=== PATIENT | female | born 1945 | race Caucasian/White ===

== ENCOUNTER 2022-06-23 19:25 | Inpatient (IN) | payer MEDICARE ==
[~2022-06-23] VITALS: Ht 167.6 cm; Wt 55.3 kg
[2022-06-23] MEDS ORDERED: IV NORMAL SALINE 500 ML IV ONE ×2 (20:00→22:15)
[2022-06-23 20:55] LABS: HEMATOCRIT 31.7 % (31.2-41.9); MEAN CORPUSCULAR VOLUME 99.8 fL (75.5-95.3); PLATELET COUNT (AUTO) 213 K/uL (179-408)
[2022-06-23 21:12] LABS: CARBON DIOXIDE 32 mmol/L (21-32); CHLORIDE 99 mmol/L (98-107); CREATININE 1.7 mg/dL (0.6-1.3); GLUCOSE 159 mg/dL (74-106); POTASSIUM 4.2 mmol/L (3.5-5.1); UREA NITROGEN, BLOOD 18 mg/dL (7-18)
[2022-06-23 21:20] LABS: ALANINE AMINOTRANSFERASE 11 U/L (14-59); ALKALINE PHOSPHATASE 107 U/L (50-136); ASPARTATE AMINOTRANSFERASE 11 U/L (15-37); BILIRUBIN,DIRECT 0.1 mg/dL (0.0-0.2); BILIRUBIN,TOTAL 0.6 mg/dL (0.2-1.0); TOTAL PROTEIN, SERUM 6.4 g/dL (6.4-8.2)
[2022-06-23] MEDS ORDERED: IV NORMAL SALINE 250 ML IV ONE (21:31)
[2022-06-23] MEDS ORDERED: IOHEXOL 300MG/ML 100 ML INFUS..BTL ONE (21:31)
[2022-06-23 21:39] LABS: LIPASE 34 U/L (73-393)
--- NOTE | 2022-06-23 21:46 | NUR ---
PATIENT TO CT VIA GURNEY, FAMILY REMAINS AT BEDSIDE, HAS BEEN UPDATED ON PLAN OF CARE.
--- NOTE | 2022-06-23 21:49 | NUR ---
2030 PATIENT WAS ASSISTED INTO ROOM # 4, INFORMED OF PLAN OF CARE, NO S/S OF ANY DISTRESS NOTED DENIES ANY PAIN AT THIS TIME. SIDE RAILS UP, #20G ESTABLISHED IN RIGHT FOREARM, BLOOD COLLECTED AND SENT TO LAB. WILL CONTINUE TO MONITOR.
[2022-06-23] MEDS ORDERED: CEFTRIAXONE 1 G in IV DEXTROSE 5% 50 ML IV ONE (22:15)
[2022-06-23] MEDS ORDERED: ONDANSETRON 4 MG/2 ML VIAL IV ONE (22:15)
[2022-06-23] MEDS ORDERED: AZITHROMYCIN IV 500 MG in IV DEXTROSE 5% 250 ML IV ONE (22:15)
[2022-06-23] MEDS ORDERED: AZITHROMYCIN 500MG/ D5W 250ML IVPB **ER PYXIS ONLY IV ONE (22:44)
[2022-06-23] MEDS ORDERED: CEFTRIAXONE /D5W 50ML IVPB **ER PYXIS IV ONE (22:44)
[2022-06-23] MEDS ORDERED: ONDANSETRON 4 MG/2 ML VIAL ONE (22:44)
[2022-06-23] MEDS ORDERED: ONDANSETRON 4 MG/2 ML VIAL IV PRN (23:15)
[2022-06-23] MEDS ORDERED: MORPHINE SULFATE 2 MG/1 ML DISP.SYRIN IV PRN (23:15)
[2022-06-23] MEDS ORDERED: REMEDY ESSENTIAL ZINC PASTE 113 GM TP PRN (23:15)
[2022-06-23] MEDS ORDERED: ACETAMINOPHEN 325 MG TABLET PO PRN (23:15)
--- NOTE | 2022-06-23 23:34 | NUR ---
ASSISTED TO BATHROOM AND BACK TO BED. FAMILY REMAINS AT BEDSIDE.[id number]%
[2022-06-24] MEDS ORDERED: FAMOTIDINE. 20 MG/2 ML VIAL IV ONE ×2 (00:15→00:26)
--- NOTE | 2022-06-24 00:23 | NUR ---
REPORT GIVEN TO ACCEPTING NURSE, PATIENT REMAINS STABLE FOR TRANSPORT TO UNIT.
[2022-06-24 01:30] VITALS: BP 134/53
--- NOTE | 2022-06-24 01:50 | NUR ---
Received report from BRYANNA Oh at 0022. Patient came to TELE unit at this time on a gurney from ER. AAOx4 and ambulatory. Stated no pain and SOB at this time. Is SR on tele monitor, HR 78. Right FA IV access is intact and patent. Safety measures are enforced. Will follow up on plan of care for new admit.
[2022-06-24 04:00] VITALS: BP 142/54
[2022-06-24] MEDS: PANTOPRAZOLE SODIUM 40 MG TABLET.DR PO SCH (06:26)
[2022-06-24 06:43] LABS: HEMATOCRIT 25.8 % (31.2-41.9); MEAN CORPUSCULAR HEMOGLOBIN 34.6 uug (24.7-32.8); MEAN CORPUSCULAR VOLUME 100.2 fL (75.5-95.3); PLATELET COUNT (AUTO) 161 K/uL (179-408)
[2022-06-24 07:01] LABS: THYROID STIMULATING HORMONE 2.044 mIU/mL (0.358-3.740)
[2022-06-24] MEDS: IV NS 1000 ML 1,000 ML IV PRN (07:18)
[2022-06-24 07:36] LABS: CARBON DIOXIDE 29 mmol/L (21-32); CHLORIDE 102 mmol/L (98-107); CREATININE 1.5 mg/dL (0.6-1.3); GLUCOSE 107 mg/dL (74-106); MAGNESIUM 1.4 mg/dL (1.8-2.4); PHOSPHOROUS 3.8 mg/dL (2.5-4.9); UREA NITROGEN, BLOOD 18 mg/dL (7-18)
[2022-06-24] MEDS: MAGNESIUM SULFATE/D5W 100 ML IV SCH ×2 (11:12→15:58)
[2022-06-24 11:42] VITALS: BP 129/72
[2022-06-24] MEDS ORDERED: LORAZEPAM 2 MG/1 ML VIAL IV PRN (12:15)
[2022-06-24] MEDS: CYANOCOBALAMIN 1000 MCG/ML VIAL IM SCH (14:34)
[2022-06-24 15:21] LABS: IRON, SERUM 87 ug/dL (50-175)
[2022-06-24 15:35] LABS: FERRITIN 226 ng/mL (8-252); LACTATE DEHYDROGENASE 148 U/L (81-234)
[2022-06-24 15:45] VITALS: BP 135/69
[2022-06-24] MEDS ORDERED: AMLO5TAB4 PO (16:48)
[2022-06-24] MEDS ORDERED: EPIN11.7 IH (16:53)
[2022-06-24 20:00] VITALS: BP 148/64
[2022-06-24] MEDS ORDERED: AZITHROMYCIN IV 500 MG in IV DEXTROSE 5% 250 ML IV SCH (22:00)
[2022-06-24] MEDS: CEFTRIAXONE 1 G in IV DEXTROSE 5% 50 ML IV SCH (23:42)
[2022-06-25] MEDS: IV NS 1000 ML 1,000 ML IV PRN (03:41)
[2022-06-25 04:00] VITALS: BP 108/60
[2022-06-25] MEDS: PANTOPRAZOLE SODIUM 40 MG TABLET.DR PO SCH (06:10)
[2022-06-25 06:40] LABS: HEMATOCRIT 23.7 % (31.2-41.9); MEAN CORPUSCULAR HEMOGLOBIN 34.4 uug (24.7-32.8); MEAN CORPUSCULAR VOLUME 100.5 fL (75.5-95.3); PLATELET COUNT (AUTO) 145 K/uL (179-408)
[2022-06-25 07:00] LABS: BILIRUBIN,TOTAL 0.6 mg/dL (0.2-1.0); CREATININE 1.1 mg/dL (0.6-1.3); MAGNESIUM 1.7 mg/dL (1.8-2.4); PHOSPHOROUS 3.5 mg/dL (2.5-4.9); TOTAL PROTEIN, SERUM 5.7 g/dL (6.4-8.2)
[2022-06-25 07:07] LABS: *IMMUNOGLOBULIN G, SERUM 782 mg/dL (586-1602); IMMUNOGLOBULIN M, SERUM 58 mg/dL (26-217)
[2022-06-25] MEDS: CYANOCOBALAMIN 1000 MCG/ML VIAL IM SCH (08:35)
[2022-06-25] MEDS ORDERED: MAGNESIUM OXIDE 400 MG TABLET PO ONE (09:00)
[2022-06-25 09:06] LABS: ALPHA-1-GLOBULIN 0.3 g/dL (0.0-0.4); ALPHA-2-GLOBULIN 0.7 g/dL (0.4-1.0); BETA GLOBULIN 0.9 g/dL (0.7-1.3); GAMMA GLOBULIN 0.9 g/dL (0.4-1.8); GLOBULIN, TOTAL 2.9 g/dL (2.2-3.9); M-SPIKE Not Observed g/dL (Not Observed)
[2022-06-25 11:06] LABS: CANCER AG, 125 15.2 U/mL (0.0-38.1); CANCER ANTIGEN 15-3 25.4 U/mL (0.0-25.0)
[2022-06-25 12:44] VITALS: BP 158/52
--- NOTE | 2022-06-25 14:25 | NUR ---
Patient is currently in her bed, watching TV, no signs of pain or distress noted. Patient is calm, no restraining methods are being used today. Will continue to monitor.
[2022-06-25 16:06] VITALS: BP 161/48
[2022-06-25] MEDS: AZITHROMYCIN 250 MG TABLET PO SCH (20:33)
[2022-06-25 20:39] VITALS: BP 161/76
[2022-06-25] MEDS: CEFTRIAXONE 1 G in IV DEXTROSE 5% 50 ML IV SCH (22:35)
--- NOTE | 2022-06-26 01:30 | NUR ---
PATIENT AWAKE IN BED. MID-LINE NOTED TO LEFT UPPER ARM, ACCIDENTLY DISLODGED FROM PATIENT. NOTIFIED [employer] THAT PATIENTS MID-LINE WAS ACCIDENTLY PULLED OUT AND WILL NEED ONE INSERTED IN AM.
[2022-06-26 05:39] VITALS: BP 155/68
[2022-06-26] MEDS: PANTOPRAZOLE SODIUM 40 MG TABLET.DR PO SCH (06:04)
--- NOTE | 2022-06-26 06:37 | NUR ---
TEXT DR. WILKINS FOR MRI APPROVAL.
[2022-06-26 07:38] LABS: HEMATOCRIT 24.4 % (31.2-41.9); MEAN CORPUSCULAR VOLUME 99.8 fL (75.5-95.3); PLATELET COUNT (AUTO) 177 K/uL (179-408)
[2022-06-26 08:01] LABS: BILIRUBIN,TOTAL 0.5 mg/dL (0.2-1.0); CREATININE 0.8 mg/dL (0.6-1.3); MAGNESIUM 1.5 mg/dL (1.8-2.4); PHOSPHOROUS 3.7 mg/dL (2.5-4.9); POTASSIUM 3.9 mmol/L (3.5-5.1); TOTAL PROTEIN, SERUM 6.1 g/dL (6.4-8.2)
[2022-06-26] MEDS: CYANOCOBALAMIN 1000 MCG/ML VIAL IM SCH (08:19)
[2022-06-26] MEDS ORDERED: MAGNESIUM SULFATE/D5W 100 ML IV SCH ×2 (11:00→19:45)
[2022-06-26] MEDS: PROTEIN SUPPLEMENT (PROSTAT) 30 ML LIQUID GT SCH (11:15)
[2022-06-26] MEDS: ENSURE ENLIVE (VAN) 240 ML LIQUID PO SCH ×2 (11:15→17:00)
[2022-06-26 11:48] VITALS: BP 129/53
--- NOTE | 2022-06-26 12:35 | NUR ---
Had multiple attempts to reach patient's daughter Emma by phone but unsuccessful, no one is picking up the phone. I left her a voice mail that we need a consent signed by her for her mother who is confused at times for her MRI.
--- NOTE | 2022-06-26 14:00 | NUR ---
Emma (pt's daughter) called and we went over MRI questionnaire over the phone with her amnd signed consent over the phone as well for the pt's MRI of pelvis today.
[2022-06-26] MEDS: MAGNESIUM SULFATE/D5W 100 ML IV SCH ×2 (15:20→15:30)
--- NOTE | 2022-06-26 15:52 | NUR ---
Patient is being picked up by the ambulance right now to go to MRI to [facility]. Patient is A/O x 3-4, has no pain or distress.
[2022-06-26] MEDS: FOLIC ACID 1 MG TABLET PO SCH (18:43)
[2022-06-26] MEDS: THIAMINE HCL 100 MG TABLET PO SCH (18:43)
--- NOTE | 2022-06-26 18:43 | NUR ---
Patient chiara received her second bag of Magnesium because she was out for MRI at [facility]. She just came back, she said she feels good and has no pain or distress. She is eating her dinner now.
[2022-06-26] MEDS: IV NS 1000 ML 1,000 ML IV PRN (19:42)
[2022-06-26 20:01] VITALS: BP 144/56
[2022-06-26] MEDS: AZITHROMYCIN 250 MG TABLET PO SCH (20:09)
[2022-06-26] MEDS: NICOTINE 21 MG/24HR PATCH TD SCH (20:09)
[2022-06-26] MEDS: CEFTRIAXONE 1 G in IV DEXTROSE 5% 50 ML IV SCH (22:26)
[2022-06-27 05:00] VITALS: BP 125/69
[2022-06-27] MEDS: PANTOPRAZOLE SODIUM 40 MG TABLET.DR PO SCH (06:28)
[2022-06-27] MEDS: PROTEIN SUPPLEMENT (PROSTAT) 30 ML LIQUID GT SCH (08:06)
[2022-06-27] MEDS: NICOTINE 21 MG/24HR PATCH TD SCH (08:06)
[2022-06-27] MEDS: ENSURE ENLIVE (VAN) 240 ML LIQUID PO SCH ×2 (08:06→16:50)
[2022-06-27] MEDS: THIAMINE HCL 100 MG TABLET PO SCH (08:06)
[2022-06-27] MEDS: FOLIC ACID 1 MG TABLET PO SCH (08:06)
[2022-06-27] MEDS: CYANOCOBALAMIN 1000 MCG/ML VIAL IM SCH (08:06)
[2022-06-27 11:36] VITALS: BP 168/72
[2022-06-27 16:00] VITALS: BP 178/75
[2022-06-27 20:17] VITALS: BP 163/64
[2022-06-27] MEDS: AZITHROMYCIN 250 MG TABLET PO SCH (20:20)
[2022-06-27] MEDS: AMLODIPINE 5 MG TABLET PO SCH (20:20)
[2022-06-27] MEDS: CEFTRIAXONE 1 G in IV DEXTROSE 5% 50 ML IV SCH (22:32)
[2022-06-27 23:28] VITALS: BP 151/60
[2022-06-28 05:40] VITALS: BP 140/55
[2022-06-28] MEDS: PANTOPRAZOLE SODIUM 40 MG TABLET.DR PO SCH (06:04)
[2022-06-28 07:55] LABS: HEMATOCRIT 27.4 % (31.2-41.9); MEAN CORPUSCULAR HEMOGLOBIN 34.7 uug (24.7-32.8); PLATELET COUNT (AUTO) 227 K/uL (179-408)
[2022-06-28] MEDS: ENSURE ENLIVE (VAN) 240 ML LIQUID PO SCH ×2 (08:00→16:02)
[2022-06-28] MEDS: PROTEIN SUPPLEMENT (PROSTAT) 30 ML LIQUID GT SCH (08:00)
[2022-06-28 08:05] LABS: CREATININE 0.9 mg/dL (0.6-1.3); MAGNESIUM 1.6 mg/dL (1.8-2.4); PHOSPHOROUS 3.9 mg/dL (2.5-4.9); POTASSIUM 3.8 mmol/L (3.5-5.1)
[2022-06-28] MEDS: THIAMINE HCL 100 MG TABLET PO SCH (08:05)
[2022-06-28] MEDS: NICOTINE 21 MG/24HR PATCH TD SCH (08:05)
[2022-06-28] MEDS: CYANOCOBALAMIN 1000 MCG/ML VIAL IM SCH (08:05)
[2022-06-28] MEDS: AMLODIPINE 5 MG TABLET PO SCH (08:05)
[2022-06-28] MEDS: FOLIC ACID 1 MG TABLET PO SCH (08:05)
[2022-06-28 08:10] LABS: *BILIRUBIN,URIN NEGATIVE (NEGATIVE); *BLOOD, URINE NEGATIVE (NEGATIVE); *CLARITY,URINE CLEAR (CLEAR); *COLOR,URINE YELLOW (YELLOW); *KETONES,URINE NEGATIVE (NEGATIVE); *UROBILINOGEN,URINE 0.2 E.U./dl (NORMAL); LEUKOCYTE ESTERASE ,URINE NEGATIVE (NEGATIVE); NITRITE, URINE NEGATIVE (NEGATIVE); PH,URINE 7.5 (5.0-8.0); UGLUCOSE NEGATIVE (NEGATIVE)
[2022-06-28] MEDS ORDERED: MAGNESIUM OXIDE 400 MG TABLET PO ONE (08:45)
[2022-06-28] MEDS ORDERED: GADOTERATE MEGLUMINE 5 MMOL/10 ML VIAL IV ONE (09:33)
[2022-06-28 11:30] VITALS: BP 164/77
[2022-06-28 14:36] VITALS: BP 145/66
[2022-06-28 15:36] VITALS: BP 121/73
[2022-06-28] MEDS ORDERED: MAGN400T30 PO (16:05)
[2022-06-28] MEDS ORDERED: THIA100T13 PO (16:05)
[2022-06-28] MEDS ORDERED: Lactose-Free Food PO (16:05)
[2022-06-28] MEDS ORDERED: CYAN1TAB43 PO (16:05)
[2022-06-28] MEDS ORDERED: AMLO-212 PO (16:05)
--- NOTE | 2022-06-28 17:51 | NUR ---
DC ORDERS RECEIVED NOTED AND CARRIED OUT,DC HEPLOCK PER MD ORDERS,DC INSTRUCTION GIVEN TO THE PT AND HER DAUGHTER .PT LEFT THE FACILITY VIA PRIVATE CAR IN STABLE CONDITION
[2022-06-28] MEDS ORDERED: MAGNESIUM OXIDE 400 MG TABLET PO SCH (21:00)
== END 2022-06-28 17:50 | disposition home or self-care (01) | DRG 871 ==
LOC: ER 19:25 → TELE3 22:33 → MEDSURG3 06-24 15:44
PROVIDERS: ADMIT Internal Medicine; ATTEND Internal Medicine
PROC: 05H633Z Insertion of Infusion Device into Left Subclavian Vein, Percutaneous Approach (ICD-10-PCS; principal; 2022-06-24)
PROC: B547ZZA Ultrasonography of Left Subclavian Vein, Guidance (ICD-10-PCS; 2022-06-24)
DX: A41.9 Sepsis, unspecified organism (principal); E43 Unspecified severe protein-calorie malnutrition; J69.0 Pneumonitis due to inhalation of food and vomit; G92.8 Other toxic encephalopathy; N17.0 Acute kidney failure with tubular necrosis; E87.20 Acidosis, unspecified; D68.59 Other primary thrombophilia; J44.0 Chronic obstructive pulmonary disease with (acute) lower respiratory infection; R18.8 Other ascites; D62 Acute posthemorrhagic anemia; Z68.1 Body mass index [BMI] 19.9 or less, adult; C34.11 Malignant neoplasm of upper lobe, right bronchus or lung; F10.239 Alcohol dependence with withdrawal, unspecified; C90.00 Multiple myeloma not having achieved remission; R10.9 Unspecified abdominal pain; D53.9 Nutritional anemia, unspecified; D69.6 Thrombocytopenia, unspecified; E53.8 Deficiency of other specified B group vitamins; F17.210 Nicotine dependence, cigarettes, uncomplicated; I10 Essential (primary) hypertension; K80.20 Calculus of gallbladder without cholecystitis without obstruction; R62.7 Adult failure to thrive; Z74.09 Other reduced mobility; R59.0 Localized enlarged lymph nodes; R58 Hemorrhage, not elsewhere classified; G31.84 Mild cognitive impairment of uncertain or unknown etiology; C57.4 Malignant neoplasm of uterine adnexa, unspecified; I70.0 Atherosclerosis of aorta
CPT/HCPCS: 36415; 70450; 71045; 71250; 76641-TC; 82378; 82746; 82784; 83550; 83605; 83615; 83690; 83735; 84100; 84155; 84165; 84443; 84484; 85025; 85610; 85730; 86300; 86334; 87040; 93005; 93307; A4663; A9575; G0378; J0456; J0696; J2060; J2405; J3420; J3475; J3490; J7040; J7050; Q0144; Q9967